=== PATIENT | female | born 1975 | race Caucasian/White ===

== ENCOUNTER → 2021-12-14 13:26 | Outpatient (CLI) | payer SELFPAY ==
--- NOTE | 2021-12-14 13:32 | US_ITS ---
FINAL REPORT CLINICAL HISTORY: LT FOREARM SWELLING FINDINGS: US EXTREMITY, NONVASCULAR, LIMITED, ANATOMIC SPECIFIC Limited sonographic images were obtained of the soft tissues of the left forearm. No masses or fluid collections are identified at the areas of interest. IMPRESSION: No masses or fluid collections at the areas of interest. Reviewed, Interpreted and Dictated by Alexander Dewitt III, MD Transcribed by Syd Vaca Authenticated and [facility]
== END ==
PROVIDERS: PCP Nurse Practitioner Family; Visit Provider Nurse Practitioner Family
DX: R22.32 Localized swelling, mass and lump, left upper limb (principal)
CPT/HCPCS: 76882

== ENCOUNTER 2023-05-23 13:00 | Outpatient (RCR) | payer BC, SELFPAY ==
--- NOTE | 2023-04-17 10:28 | HMH.PTOPWND ---
Rehab Outpt Wound Evaluation Rehab OP Wound Evaluation Start: 04/16/23 16:20 Freq: Status: Active Protocol: Document 04/16/23 16:20 BERTHA (Rec: 04/16/23 16:34 PHORNE [id number]) E-signed By Deon Farley, PT Subjective/History History History This is the initial PT eval for Lisa Gleason, 47 yowf who presents with c/o dramatic increases in UE and LE size, weight, and edema. She states, In the past year or two, i had two episodes where I gained anywhere bewtween 20 to 40 pounds in a week. She reports increased pain and tenderness to palpation, worse in the legs, and especially with prolonged standing or walking. She reports hx of similar problems with the women on her paternal side of the family. She reports hx of CHF ( but I got rid of that ), Ehler Danlos syndrome, MS, Lyme disease, x 2, tubal ligation, tubal ligation reversal, appy, tonsilectomy. LLIS score 47. Beighton Scale score: 7/9. Subjective Subjective Current pain is 2/10, at worst 7/10. 2/4 TTP noted to B LE this date. No pitting edema noted at this time. Mild cuffing noted at B ankles and wrist. Minimal to moderate nodularity noted in B thighs and upper arms. New diagnosis of cancer in past 12 No months? Lymphedema Eval Classification of Lymphedema Secondary Lymphedema Yes: Lipedema Stemmer's sign Stemmer's Sign no Stage of Lymphedema Lymphedema stages Stage II (Pitting edema, increased fibrosis w/ decreased pitting) Skin Changes Dry Skin Yes Skin Folds Yes Other Changes Yes Pain Scale Pain Scale (0-10) 7 Affected Extremities Areas Affected by Lymphedema/Edema Right Upper Extremity,Left Upper Extremity,Right Lower Extremity,Left Lower Extremity Manual Lymphatic Drainage Treatment Area MLD Treatment Area Right Upper Extremity,Left Upper Extremity,Right Lower Extremity,Left Lower Extremity Wound Problems/Impairments Impairments Problems/Impairmments Palpation Tenderness,Impaired Endurance,Impaired Walking, Impaired Standing,Impaired Sitting,Impaired Driving, Impaired Recreational Activities,Lymphedema Present, Subjective C/O Pain,Impaired Self Care/Self Management Prognosis Rehab Potential Good Clinical Impression Consistent with Diagnosis Yes Short Term Goals Number of Weeks 4 Decreased Palpation Tenderness Yes: 1/4 B LE and UE Increase Ability to Stand Yes: > 30 min without pain Decrease Subjective C/O Pain Yes: 5/10 at worst Patient to Understand Lymphedema Yes Treatment and Exercises Decrease Girth Measurments by (cm) Yes: B LE total by 5 cm Senior Care Goals Number of Weeks 8 Decreased Palpation Tenderness Yes: 0/4 B UE and LE Increase Ability to Walk Yes: > 30 min without pain Return to Recreational Activities Yes Decrease Lymphedema Yes Decrease Subjective C/O Pain Yes: 3/10 at worst Patient to be Ind w/ HEP Yes Patient to be Ind w/ [place] Yes Compression Garments Patient to Adhere Lymphedema Precautions Yes Decrease Girth Measurments by (cm) Yes: B LE total by 15 cm ea Outpatient Therapy Plan of Care Treatment Plan May Include Therapeutic Exercise Including Home Yes Exercise Program Manual Therapy Techniques Yes Neuromuscular Re-education Yes Therapeutic Activities to Return to Yes Previous Functional/Work Level ADL/Self Care Education Yes Orthotics/Bracing/Splinting Yes Vasopneumatic Compression Pump Yes Massage Yes Manual Lymphatic Drainage Yes Eval/Re-Eval Yes Aquatic Therapy Yes Frequency Times per week 2 Duration Number of Weeks 6-8 Addendums This patient is a candidate for social No or vocational rehab? Patient/Guardian verbally acknowledges Yes understanding of treatment program and consents to further treatment? Patient/Guardian verbally acknowledges Yes understanding of diagnosis, prognosis and goals for treatment? Eval Complexity PT Charges 27819 - High Complexity PHYSICIAN CERTIFICATION: I certify the specified therapy services for Lisa Gleason are required, authorized, and reviewed every 30 days.
== END 2023-05-23 14:15 | disposition home or self-care (01) ==
LOC: PT 13:00
PROVIDERS: PCP Nurse Practitioner Family; Visit Provider Nurse Practitioner Family
DX: I89.0 Lymphedema, not elsewhere classified (principal); R60.0 Localized edema
CPT/HCPCS: 97140; 97163

== ENCOUNTER 2023-06-28 09:44 | Outpatient (CLI) | payer BC, SELFPAY ==
[2023-06-28 18:00] LABS: Amphetamine/Metha Screen,Urine Negative ng/ml (<1000); Barbiturates Screen,Urine Negative ng/ml (<200); Benzodiazepines Screen,Urine Negative ng/ml (<200); Cannabinoid Screen,Urine Negative ng/ml (<50); Cocaine Screen,Urine Negative ng/ml (<300); Methadone Screen,Urine Negative ng/ml (<300); Opiate Screen,Urine Negative ng/ml (<300); Phencyclidine Screen,Urine Negative ng/ml (<25)
== END 2023-06-28 23:59 ==
LOC: LAB.DROPOF 06-29 09:45
PROVIDERS: PCP Nurse Practitioner Family; Visit Provider Nurse Practitioner Family
DX: Z79.899 Other long term (current) drug therapy (principal)
CPT/HCPCS: 80307

== ENCOUNTER 2023-08-06 11:00 | Outpatient (CLI) | payer BC, SELFPAY ==
--- NOTE | 2023-08-06 11:02 | CA_ITS ---
APPROVED REPORT EXAM: Comprehensive 2D, Doppler, and color-flow Echocardiogram Principal Secretary: Lubna Gilman RVT Ht: 5 ft 4 in Wt: 195lbs BSA: 1.94 BP: 115/68 mmHg Indications: EHLER-DANLOS,MULTIPLE SCLEROSIS,LYME DISEASE,TACHYCARDIA,PT STATES SHE HAS A TILTED HEART 2D Dimensions LA Volume 39.90 mL LA Volume Index 20.57 mL/m2 (M/F) 16-34 M-Mode Dimensions RVDd 2.05 cm (0.9-2.6) LA Diam 3.91 cm (1.9-4.0) LVDd 4.79 cm (3.5-5.7) LVDs 2.97 cm (3.5-5.7) IVSd 0.88 cm (0.6-1.1) PWd 0.46 cm (0.6-1.1) EF (Teich) 68.00% FS 38.00% EDV (Teich) 107.00 mL TAPSE 2.44 (<1.7) ESV (Teich) 34.20 mL LV Diastology E Decel Time 150 (160-240 msec) E/A Ratio 0.9 Aortic Valve ZAC Index 1.87 cm2/m2 AoV Peak Charly. 106.0 (50-130 cm/s) AO Peak GR. 4.50 mmHg AO Mean GR. 2.10 (<5 mmHg) AO VTI 18.3 (18-25 cm) ZAC (VTI) 3.71 (2.5-4.5 cm2) Mitral Valve MV E Max Charly. 65.0 (40-130 cm/s) MV A Velocity 69.0 (40-130 cm/s) E/A Ratio 0.95 MV PHT 44.0 ms Pulmonary Valve PV Peak Velocity 90.0 (50-150 cm/s) Tricuspid Valve TR P. Velocity 247.00 cm/s RAP Estimate 10.00 mmHg RVSP 34.40 mmHg Left Ventricle The left ventricle is normal size. The left ventricular systolic function is normal. The left ventricular ejection fraction is within the normal range. There is normal LV wall thickness. There is normal LV segmental wall motion. The left ventricular diastolic function is normal. LVEF is 55%. Right Ventricle The right ventricle is normal size. The right ventricular systolic function is normal. Atria The left atrium size is normal. The right atrium size is normal. The interatrial septum is not well-visualized. Aortic Valve The aortic valve opens well. There is no aortic valvular stenosis. No aortic regurgitation is present. Mitral Valve The mitral valve is normal in structure. No evidence of mitral valve stenosis. Trace mitral regurgitation. Tricuspid Valve The tricuspid valve leaflets are thin and pliable. Trace tricuspid regurgitation. RVSP is 20-25 mmHg. Pulmonic Valve The pulmonary valve is normal in structure. Trace pulmonic regurgitation. Great Vessels The aortic root is normal in size. The ascending aorta is not well-visualized. IVC is normal in size and collapses >50% with inspiration. Pericardium There is no pericardial effusion. Other Information Study Quality: Fair Conclusion Normal biventricular systolic function. No significant valvular stenosis or regurgitation. Electronically signed by : Shara Morley MD 08/07/2023 12:13:59
== END 2023-08-06 23:59 ==
LOC: RT 11:02
PROVIDERS: PCP Nurse Practitioner Family; Visit Provider Nurse Practitioner Family
DX: Q24.8 Other specified congenital malformations of heart (principal)
CPT/HCPCS: 93306

== ENCOUNTER 2023-11-27 15:21 | Outpatient (CLI) | payer BC, SELFPAY ==
[2023-11-27 16:39] LABS: Chloride 102 mmol/L (98-107); Potassium 3.8 mmoL/L (3.5-5.1); Sodium 136 mmol/L (136-145)
[2023-11-27 16:42] LABS: Alanine Aminotransferase 29 U/L (12-78); Albumin Level 4.3 g/dl (3.5-5.0); Albumin/Globulin Ratio 1.7 (1.1-1.8); Alkaline Phosphatase 80 U/L (38-126); Anion Gap 11.8 mEq/L (5-15); Aspartate Amino Transferase 33 U/L (14-36); Bilirubin,Total 0.4 mg/dl (0.2-1.3); Blood Urea Nitrogen 19 mg/dl (7-17); Calcium 9.1 mg/dl (8.4-10.2); Carbon Dioxide 26 mmol/L (22.0-30.0); Estimated Glomerular Filt Rate 68 ml/min (>60); GFR (African American) 82 ML/MIN (>60); Globulin 2.6 g/dL (1.3-3.2); Glucose 96 mg/dl (74-100); Total Protein,Serum 6.9 g/dl (6.3-8.2)
[2023-11-27 16:48] LABS: C-Reactive Protein 2.9 mg/L (0-4)
[2023-11-27 17:03] LABS: 25-OH Vitamin D, Total 24.1 ng/mL (30-100)
[2023-11-27 17:13] LABS: Thyroid Stimulating Hormone 0.44 uIU/mL (0.465-4.68)
[2023-11-27 17:17] LABS: Ferritin 4.77 ng/ml (6.24-137)
[2023-11-27 18:28] LABS: Vitamin B12 411 pg/mL (239-931)
[2023-11-28 14:43] LABS: EBV Ab VCA, IgG 80.5 U/mL (0.0-17.9); EBV Ab VCA, IgM <36.0 U/mL (0.0-35.9); EBV Nuclear Antigen Ab, IgG 23.9 U/mL (0.0-17.9)
[2023-11-28 17:35] LABS: % CD8-/CD57+ Lymphs 2.8 % (2.0-17.0); Abs.CD8-CD57+ Lymphs 45 /uL (60-360); Basos 1 % (Not Estab.); Eos 2 % (Not Estab.); Eos (Absolute) 0.1 x10E3/uL (0.0-0.4); Hematocrit 35.8 % (34.0-46.6); Hemoglobin 10.7 g/dL (11.1-15.9); Immature Granulocytes 0 % (Not Estab.); Lymphs 30 % (Not Estab.); Lymphs (Absolute) 1.6 x10E3/uL (0.7-3.1); MCH 24.2 pg (26.6-33.0); MCHC 29.9 g/dL (31.5-35.7); MCV 81 fL (79-97); Monocytes 8 % (Not Estab.); NRBC 0 % (0 - 0); Neutrophils 59 % (Not Estab.); Neutrophils (Absolute) 3.2 x10E3/uL (1.4-7.0); Platelets 353 x10E3/uL (150-450); RBC 4.42 x10E6/uL (3.77-5.28); WBC 5.5 x10E3/uL (3.4-10.8)
[2023-11-30 19:41] LABS: Magnesium,RBC 5.2 mg/dL (3.7-7.0)
== END 2023-11-27 23:59 | disposition home or self-care (01) ==
LOC: LAB 15:22
PROVIDERS: PCP Nurse Practitioner Family; Visit Provider Nurse Practitioner Family
DX: G35 Multiple sclerosis (principal); A69.20 Lyme disease, unspecified; Q79.60 Ehlers-Danlos syndrome, unspecified; M79.10 Myalgia, unspecified site; R25.2 Cramp and spasm; B27.90 Infectious mononucleosis, unspecified without complication; D64.9 Anemia, unspecified; R79.89 Other specified abnormal findings of blood chemistry; E55.9 Vitamin D deficiency, unspecified; E66.9 Obesity, unspecified; Z68.33 Body mass index [BMI] 33.0-33.9, adult
CPT/HCPCS: 36415; 80053; 82306; 82607; 82728; 83735; 84443; 86140; 86357; 86664; 86665

== ENCOUNTER 2024-01-24 13:59 | Outpatient (CLI) | payer BC, SELFPAY ==
[2024-01-24 14:18] LABS: Basophils # 0.1 K/mm3 (0-0.2); Eosinophils % 0.6 % (0.1-12.0); Hematocrit 35.9 % (37.0-47.0); Hemoglobin 11.8 g/dL (12.2-16.2); Lymphocytes # 1.5 K/mm3 (0.7-4.5); Lymphocytes % 22.9 % (10-50); Mean Corpuscular HGB Conc 32.8 g/dL (31.8-35.4); Mean Corpuscular Hemoglobin 25.4 pg (27.0-31.2); Mean Corpuscular Volume 77.5 fl (81-99); Mean Platelet Volume 7.7 fl (7.4-10.4); Monocytes # 0.3 K/mm3 (0.1-1.0); Monocytes % 4.9 % (1.7-9.3); Neutrophils # 4.7 K/mm3 (1.8-7.8); Neutrophils % 70.6 % (37.0-80.0); Platelet Count 358 K/mm3 (142-424); Red Blood Count 4.64 M/mm3 (4.20-5.40); Red Cell Distribution Width 17.6 % (11.5-17.5); White Blood Count 6.6 K/mm3 (4.8-10.8)
[2024-01-24 14:38] LABS: Alanine Aminotransferase 20 U/L (12-78); Albumin Level 4.4 g/dl (3.5-5.0); Albumin/Globulin Ratio 1.7 (1.1-1.8); Alkaline Phosphatase 72 U/L (38-126); Anion Gap 12.2 mEq/L (5-15); Aspartate Amino Transferase 23 U/L (14-36); Bilirubin,Total 0.5 mg/dl (0.2-1.3); Blood Urea Nitrogen 18 mg/dl (7-17); Calcium 9.4 mg/dl (8.4-10.2); Carbon Dioxide 25 mmol/L (22.0-30.0); Chloride 106 mmol/L (98-107); Estimated Glomerular Filt Rate 77 ml/min (>60); GFR (African American) 93 ML/MIN (>60); Globulin 2.6 g/dL (1.3-3.2); Glucose 114 mg/dl (74-100); Potassium 4.2 mmoL/L (3.5-5.1); Sodium 139 mmol/L (136-145)
[2024-01-24 14:55] LABS: 25-OH Vitamin D, Total 54.6 ng/mL (30-100); Free T4 (Free Thyroxine) 0.84 ng/dl (0.78-2.19)
[2024-01-24 15:33] LABS: Iron 69 ug/dL (37-170)
[2024-01-24 15:43] LABS: Total Iron Binding Capacity 454 ug/dL (265-497)
[2024-01-24 16:05] LABS: Thyroid Stimulating Hormone 0.56 uIU/mL (0.465-4.68)
[2024-01-24 16:09] LABS: Ferritin 4.02 ng/ml (6.24-137)
[2024-01-26 11:09] LABS: Triiodothyronine (T3) Free 2.7 pg/mL (2.0-4.4)
== END 2024-01-24 23:59 | disposition home or self-care (01) ==
LOC: LAB 14:03
PROVIDERS: PCP Nurse Practitioner Family; Visit Provider Nurse Practitioner Family
DX: D64.9 Anemia, unspecified (principal); R79.89 Other specified abnormal findings of blood chemistry; E05.90 Thyrotoxicosis, unspecified without thyrotoxic crisis or storm
CPT/HCPCS: 36415; 80050; 80053; 82306; 82728; 83540; 83550; 84439; 84443; 84481; 85025